=== PATIENT | female | born 1965 | race Caucasian/White ===

== ENCOUNTER 2020-06-05 05:30 | Observation (INO) | payer BC ==
[2020-06-01 13:14] LABS: BASOPHILS % 0.2 % (0.0-1.0); EOSINOPHILS # (AUTO) 0.1 (0.0-0.4); EOSINOPHILS % 0.7 % (0.0-6.0); HEMATOCRIT 43.4 % (34.2-44.1); HEMOGLOBIN 13.7 g/dL (12.0-16.0); LYMPHOCYTES # (AUTO) 2.6 (1.0-3.2); LYMPHOCYTES % 32.2 % (18.0-39.1); MEAN CORPUSCULAR HEMOGLOBIN 26.1 pg (28-32); MEAN CORPUSCULAR HGB CONC 31.6 g/dL (31-35); MEAN CORPUSCULAR VOLUME 82.7 fL (81-99); MONOCYTES # (AUTO) 0.7 (0.2-0.8); MONOCYTES % 9.1 % (4.4-11.3); NEUTROPHILS # (AUTO) 4.6 (2.1-6.9); NEUTROPHILS % 57.4 % (38.7-80.0); PLATELET COUNT 277 x10e3/uL (140-360); RED BLOOD COUNT 5.25 x10e6/uL (3.6-5.1); RED CELL DISTRIBUTION WIDTH 14.5 % (11.7-14.4)
[2020-06-01 13:32] LABS: ALANINE AMINOTRANSFERASE 32 IU/L (0-55); ALBUMIN 3.9 g/dL (3.5-5.0); ALBUMIN/GLOBULIN RATIO 1.1 (0.8-2.0); ALKALINE PHOSPHATASE 115 IU/L (40-150); ANION GAP 13.4 mmol/L (8-16); BLOOD UREA NITROGEN 13 mg/dL (7-26); BUN/CREATININE RATIO 16 (6-25); CALCIUM 9.6 mg/dL (8.4-10.2); CARBON DIOXIDE 28 mmol/L (22-29); CHLORIDE 105 mmol/L (98-107); CREATININE, SERUM 0.81 mg/dL (0.57-1.11); EST GLOMERULAR FILTRATION RATE > 60 ML/MIN (60-); GLUCOSE 95 mg/dL (74-118); POTASSIUM 3.4 mmol/L (3.5-5.1); SODIUM 143 mmol/L (136-145)
[~2020-06-05] VITALS: Ht 157.5 cm; Wt 95.3 kg
[~2020-06-05 05:30] MED LIST: ATORVASTATIN CA20 MG PO; LOSARTAN POTAS100 MG PO; XIGDUO XR 5 MG1 EAC1 PO; ZETIA10 MG PO
[2020-06-05] MEDS ORDERED: CEFAZOLIN SOD 1 GM/NS 50ML 100 ML IV ONE (06:09)
[2020-06-05] MEDS ORDERED: ESTROGENS CONJUGATED VAGINAL CR 45 GM TUBE PV ONE (07:22)
[2020-06-05] MEDS ORDERED: BUPIVACAINE 0.25% 30ML SDV ONE (07:22)
[2020-06-05] MEDS ORDERED: LIDOCAINE 1% W/EPINEPHRINE 20 ML VIAL ONE ×2 (07:22→07:25)
[2020-06-05] MEDS ORDERED: FENTANYL CITRATE/PF 100MCG/2 ML INJ ONE ×2 (10:17→19:46)
--- OUTSIDE RECORDS SUMMARY | 2020-06-05 10:46 | XMS REPORT | Continuity of Care Document ---
Author Author [facility] t Organization [facility] Address [address] [place] [address] Phone Unavailable Care Team Providers Care Almond Huller Name Role Phone BerlinMaureen alatorrerenetta Sun Unavailable Problems This patient has no known problems. Allergies, Adverse Reactions, Alerts This patient has no known allergies or adverse reactions. Medications This patient has no known medications. Procedures This patient has no known procedures. Results Test Description Test Time Test Comments Results Result Comments Source NM THYROID IMAGING AND UPTAKE MULT DETERMINATIONS 2020-05-10 14: 54:34 [facility] : 1965 Sex: FCLINICAL INDICATION: dx: e05.90, hyperthyroidism, recent weight loss, lump in neck, exopthalamusMODALITY: Mimetas dual head gamma cameraTECHNIQUE: 200 microcuries I-123 are administered orally. 4-hour and 24-hour uptake determinations were performed. Planar imaging is performed at 4 hours.FINDINGS:COMPARISON: None4 hour uptake is 5.6% (normal 5-15%).24 hour uptake is 11.8% (normal 10-25%).Planar imaging demonstrates heterogeneous uptake is demonstrated with a large cold defect right mid and inferior thyroid, potential cold defect left superior thyroid.IMPRESSION:1. Low normal radioact harriet iodine uptake.2. Multinodular thyroid appearance; ultrasound of 04/23/2018 demonstrates 2.9 x 1.7 cm right inferior and multiple confluent benign-appearing thyroid nodules. The dominant left inferior thyroid nodule was previously biopsied and represents an adenomatous nodule. Consider repeat ultrasound examination. SCR MAMM BILATERAL SUSU CAD DIGITAL 2019-09-21 16:36:51 - SCR MAMM BILATERAL SUSU CAD DIGITALBILATERAL DIGITAL SCREENING MAMMOGRAM 3D/2D WITH CAD: 09/21/2019CLINICAL: Asymptomatic. Digital breast tomosynthesis was performed in addition to routine CC and MLO views. Current mammographic images were evaluated by either a [employer] M-Vu or a [employer] ImageBeakercker CAD (computer aided detection system). Comparison is made to exams dated 07/08/2018 mammogram, mammogram, and 05/20/2016 mammogram - [facility]-. There are scattered fibroglandular tissues in both breasts. There are benign calcifications in the right breast. There also are benign intramammary nodes in the right breast. No suspicious mass, architectural distortion, malignant type calcification, or lymph node abnormality detected. Breast architecture is stable compared to prior exams.IMPRESSION: BENIGNThere is no mammographic evidence of malignancy. Resume annual screening mammography in one year. Cornelius Lira M.D. rb/penrad:09/21/2019 16:36:51 Associate Professor Of Communication: María Elena GRAF, [facility]-letter sent: BIRADS 1-2 Normal Mammogram BI-RADS: 2 Benign SCR MAMM BILATERAL SUSU CAD DIGITAL 2018-07-14 09:57:51 - SCR MAMM BILATERAL SUSU CAD DIGITALBILATERAL DIGITAL SCREENING MAMMOGRAM 3D/2D WITH CAD: 07/08/2018CLINICAL: Asymptomatic. Digital breast tomosynthesis was performed in addition to routine CC and MLO views. Current mammographic images were evaluated by either a [employer] M-Vu or a [employer] ImageChecker CAD (computer aided detection system). Comparison is made to exams dated 06/19/2017 mammogram, 05/20/2016 mammogram, and 04/23/2015 mammogram - [facility]-. There are scattered fibroglandular tissues in both breasts. No suspicious mass, architectural distortion, malignant type calcification, or lymph node abnormality detected. Breast architecture is stable compared to prior exams.IMPRESSION: NEGATIVEThere is no mammographic evidence of malignancy. Resume annual screening mammography in one year. Ceci miller/lynsey:07/14/2018 09:57:51 Attending Technologist: Kindra GRAF, [facility]-FWImaging Technologist: Lynne GRAF, [facility]-FWletter sent: BIRADS 1-2 Normal Mammogram BI-RADS: 1 Negative
[2020-06-05] MEDS ORDERED: HYDROMORPHONE 1MG/1ML INJ ONE (11:13)
--- NOTE | 2020-06-05 12:10 | NUR ---
Received patient from PACU. Patient oriented to room and call light. Vital signs stable, no s/s of distress. Jackson in place with clear yellow urine. Vaginal packing in place, no bleeding noted. SCD's applied bilaterally. Left AC 20 gauge IV intact/patent. Call light in reach will continue to monitor patient.
[2020-06-05] MEDS ORDERED: OXYCODONE HCL IR 5 MG TAB PO PRN ×2 (13:00)
[2020-06-05] MEDS ORDERED: ACETAMINOPHEN 1000 MG/100 ML IV PRN (13:00)
[2020-06-05 13:03] VITALS: BP 129/80
[2020-06-05 13:06] VITALS: BP 129/80
[2020-06-05 13:07] VITALS: BP 129/80
[2020-06-05] MEDS ORDERED: DEXAMETHASONE SOD PHOS INJ 4 MG/ML VIAL ONE (13:09)
[2020-06-05] MEDS ORDERED: NEOSTIGMINE 1 MG/ML 10ML VIAL ONE (13:09)
[2020-06-05] MEDS ORDERED: LIDOCAINE HCL 2% LOCAL INJ 5 ML SDV VIAL INJ ONE (13:09)
[2020-06-05] MEDS ORDERED: ATROPINE SULFATE 1 MG/ML VIAL ONE (13:09)
[2020-06-05] MEDS ORDERED: SEVOFLURANE INHAL SOLN 250 ML PEN BTL ONE (13:09)
[2020-06-05] MEDS ORDERED: ROCURONIUM BROMIDE 10 MG/ML 5ML VIAL IV ONE (13:09)
[2020-06-05] MEDS ORDERED: ONDANSETRON HCL INJ 2MG/ML 2ML 2 MG/ML VIAL ONE (13:09)
[2020-06-05] MEDS ORDERED: PROPOFOL IV EMULSION 10 MG/ML 20 ML VIAL ONE (13:09)
--- NOTE | 2020-06-05 13:35 | NUR ---
Spoke to Dr. Ramos regarding patient status. New order to give 1L NS bolus. DC Jackson and remove vaginal packing.
--- NOTE | 2020-06-05 13:59 | NUR ---
Patient vaginal packing removed by Dr. Ramos. Patient benitez removed with 10cc balloon in tact with bloody tip from having the packing removed right before. Patient had some breakthrough pain and the doctor prescribed Tylenol and Motrin PRN for extra pain coverage. Dr. Ramos said if patient voids and walks around, with her pain under control she may discharge later with the two prescriptions and paper instructions in chart.
[2020-06-05] MEDS ORDERED: SODIUM CHLORIDE 0.9% 1000ML 1,000 ML IV ONE (14:00)
[2020-06-05] MEDS ORDERED: ACETAMINOPHEN 325 MG TAB PO PRN (14:00)
[2020-06-05] MEDS ORDERED: IBUPROFEN 600 MG TAB PO PRN (14:00)
[2020-06-05 16:18] VITALS: BP 111/56
--- NOTE | 2020-06-05 16:41 | NUR ---
Patient ambulated in hallway, steady gait present. No s/s of distress.
--- NOTE | 2020-06-05 18:01 | NUR ---
Patient has voided since Jackson removal.
[2020-06-05] MEDS ORDERED: NORCO 5-325 TA1 EACH PO (18:05)
[2020-06-05] MEDS ORDERED: MOTRIN200 MG PO (18:05)
--- NOTE | 2020-06-05 18:20 | NUR ---
Spoke to Dr. Ramos, patient ok to discharge home.
--- NOTE | 2020-06-05 18:48 | NUR ---
WALKING ROUNDS PERFORMED, RECEIVED PT LAYING SEMI FOWLERS IN BED, AAOX3, RR EVEN AND NON-LABORED, ON ROOM AIR. NO S/SX OF DISTRESS NOTED. FAMILY AT BEDSIDE. LEFT PT LAYING SEMI FOWLERS IN BED, BED IN LOW LOCKED POSITION, SIDE RAILS UPX2, CALL LIGHT AND PHONE WITHIN REACH.
[2020-06-05 19:30] VITALS: BP 115/75
--- NOTE | 2020-06-05 19:30 | NUR ---
TRANSLATION LINE UTILIZED TO PERFORM DISCHARGE TEACHING. SPOKE WITH DAMARI Perla. PT VERBALIZED UNDERSTANDING OF DISCHARGE INSTRUCTIONS BY TEACH BACK METHOD. PT DISCHARGE QUESTIONS ANSWERED. DISCHARGE PAPERWORK AND RX'S PROVIDED TO PATIENT AND INSERTED INTO DISCHARGE FOLDER.
--- NOTE | 2020-06-05 19:45 | NUR ---
IV TO (L) AC DISCONTINUED. IV CATHETER TIP INTACT. PRESSURE AND DRESSING APPLIED.
[2020-06-05] MEDS ORDERED: MIDAZOLAM HCL 2 MG/2 ML VIAL ONE (19:46)
--- NOTE | 2020-06-05 19:58 | NUR ---
PT TRANSPORTED BY WHEELCHAIR TO PRIVATE AUTO. PT BELONGINGS WITH DISCHARGE PAPERWORK WITH PATIENT. NO S/SX OF DISTRESS NOTED.
--- NOTE | 2020-06-05 21:45 | Operative Report ---
DATE OF PROCEDURE: 06/05/2020 SURGEON: Marina Ramos MD EXTRACTOR LOADER AND UNLOADER: MD García (Sanchez-Rotunno) PROCEDURE: Transvaginal hysterectomy, bilateral salpingo-oophorectomy, anterior repair, bilateral sacrospinous colpopexy, posterior repair, and cystoscopy. INDICATIONS FOR THE PROCEDURE: The patient is a 54-year-old postmenopausal patient with grade 3 uterine prolapse, cystocele and rectocele, who presented for definitive surgical management. She was counseled on the risks, benefits, and alternatives of the procedure. The patient agrees to proceed with the proposed procedure. Given that she was over 10 years of postmenopausal, the decision was made to proceed with bilateral salpingo-oophorectomy. ESTIMATED BLOOD LOSS: 200 mL. URINE OUTPUT: Unmeasured. SPECIMENS: Uterus, bilateral tubes and ovaries. COMPLICATIONS: None. DESCRIPTION OF PROCEDURE: The patient was taken to the operating room, where she was placed under general anesthesia. SCDs were placed and the patient was given 2 g of Ancef. She was positioned in dorsal lithotomy position using candy cane stirrups. The patient was prepped using chlorhexidine and draped in the usual sterile fashion. A time-out was performed confirming correct patient, site, and procedure. Bladder was emptied using straight cath. Cervix was visualized and noted to be prolapsed. It was grasped in the anterior and posterior lip using a Marcel clamp. 1% lidocaine was injected at the cervicovaginal junction and circumferential incision was made through the full-thickness of the vaginal epithelium at the cervicovaginal junction. The vagina was dissected out sharply and bluntly with Hodgson scissors in the posterior aspect. Peritoneum was identified and opened with Hodgson scissors. A weighted speculum was then placed in the cul-de-sac. The attention was turned to the anterior aspect of the cervix. Was gently dissected bluntly off the cervix. The left uterosacral ligament was clamped with Zeppelin perpendicular to the uterus. This pedicle was cut and suture ligated, this was repaired on the right uterosacral ligament. The left cardinal ligaments were then ligated with LigaSure, this was repaired on the right side. Using the LigaSure, both uterine vessels were ligated with excellent hemostasis. At this time, the fundus was visualized. The peritoneum was identified and excised using Bovie. The right tube and round ligament and utero-ovarian ligaments were grasped with Zeppelin, excised and suture ligated x2 with excellent hemostasis. This was repeated on the left side. The left tube and ovary were grasped with Tala and these were excised using LigaSure with excellent hemostasis. The left tube and ovary appeared normal. The right tube was grasped and ligated with LigaSure. The right ovary was grasped. The IP was clamped with the Zeppelin. The ovary was excised and the IP was suture ligated. There was excellent hemostasis noted. There was noted to be some oozing along the left pedicle on the superificial aspect and interrupted suture with 0 Vicryl used to obtain hemostasis on that side. The pedicles were then re-inspected and hemostasis confirmed. There was noted to be bleeding from the vaginal cuff and Avitene was placed for hemostasis. At this time, attention was turned to the anterior vaginal wall. A lidocaine was infiltrated on the anterior vaginal mucosa midline and an incision was made in the vaginal mucosa, the vaginal vault and the Metzenbaum scissors were then dissected mucosa off the cystocele. The bladder was carefully dissected away along the lateral edges using sharp and blunt dissection. Fingers were then inserted in the vaginal mucosa, dissected off the rectovaginal phase on the patient's left side. Ischial spine and sacrospinous ligaments were palpated. The dissected off the ligament. Capio SLIM device was loaded with 0 Vicryl and passed through the sacrospinous ligament approximately 1.5 cm medial to the ischial spine. This was repaired in similar fashion to the patient's right sacrospinous ligament. The end of the sutures was then both placed through posterior cuff using the Capio. The anterior repair was then completed. The series of 2-0 Vicryl sutures were then placed along the lateral brought together. The excess vaginal mucosa was then trimmed and the vagina was then closed with a running 0 Vicryl suture. Cystoscope was then performed using a 70-degree cystoscope. Bladder and urethra were inspected. There was no evidence of injury or perforation. Bilateral ureters with jets visualized bilaterally. Cystoscope was removed and the bladder was emptied. Jackson was placed. The vaginal cuff was inspected. There was noted to be hemostasis. Vaginal cuff was closed using 0 Vicryl using [id number] sutures incorporating the peritoneum. Hemostasis was noted. Attention was then turned to the posterior repair. Lidocaine solution was again infiltrated into the posterior vaginal mucosa midline and the perineal body. Transverse incision was cut in the peritoneum. Posterior vaginal wall was opened vertically and midline up to the apex of rectocele. Cut edges were held and slight opened with Allis clamps and the vaginal mucosa was then dissected laterally with sharp and blunt dissection exposing the perirectal fascia. The perirectal fascia was reapproximated with two interrupted 0 Vicryl sutures to the top of the rectocele back. The interrupted 0 Vicryl was then used to reapproximate the levator ani muscle. The excess vagina muscles were trimmed. The posterior vaginal wall was closed with 2-0 Vicryl suture and the superficial perineal muscles were then closed with 2-0 Vicryl suture and was closed with 2-0 Vicryl suture in a running fashion. Vaginal packing with Premarin was placed. All instruments, lap, and sponge were counted and were correct. The Jackson catheter was noted to returning clear urine. The patient tolerated the procedure well and she was taken to the PACU in stable condition. Marina Ramos MD JPO/MODL /[id number]
== END 2020-06-05 19:58 | disposition home or self-care (01) ==
LOC: OR 05:30 → PACU V 10:44 → MED/SURG 12:10
PROVIDERS: ADMIT Obstetrics & Gynecology; ATTEND Obstetrics & Gynecology
DX: N81.4 Uterovaginal prolapse, unspecified (principal); I10 Essential (primary) hypertension; E11.9 Type 2 diabetes mellitus without complications; E78.5 Hyperlipidemia, unspecified; Z01.810 Encounter for preprocedural cardiovascular examination; Z01.812 Encounter for preprocedural laboratory examination; Z20.828 Contact with and (suspected) exposure to other viral communicable diseases
CPT/HCPCS: 36415 ×2; 57260; 57282; 58262; 80053; 82948; 84702; 85025; 88305; 88307; 93005; C1758; G0378; J0461; J0690; J1100; J1170; J2001; J2250; J2405; J2704; J2710; J3010; J7030; U0002

== ENCOUNTER 2020-06-06 16:39 | Emergency (ER) | payer BC ==
[~2020-06-06] VITALS: Ht 157.5 cm; Wt 95.3 kg
[~2020-06-06 16:39] MED LIST changes: +MOTRIN200 MG PO; +NORCO 5-325 TA1 EACH PO
--- NOTE | 2020-06-06 17:03 | Emergency Department Note ---
History of Present Illnes History of Present Illness Chief Complaint: Extremity Trauma/Pain History of Present Illness This is a 54 year old female Chief Complaint Comment Patient in from home with complaints of left leg pain that started yesterday after she was here for surgery. Patient reports she had a hysterectomy yesterday and noticed the pain right after anesthesia wore off. Patient states that her toes and feet feel numb as well. Good pedal pulses noted. Patient reports pain 10/10 when standing. Historian: Patient Arrival Mode: Car Past Medical/Family History Physician Review I have reviewed the patient's past medical and family history. Any updates have been documented here. Past Medical History Recent Fever: No Clinical Suspicion of Infectio: No New/Unexplained Change in Ment: No Past Medical History: Hypertension, Diabetes, Hyperlipedemia Other Medical History: hyperthyroid vericose veins Past Surgical History: Hysterectomy Other Surgery: thyroid biopsy Social History Smoking Cessation: Never Smoker Counseling Performed: No Alcohol Use: None Any Illegal Drug Use: No Physically hurt or threatened: No Other Any Pre-Existing Lines (PICC,: No Review of Systems Review of Systems Constitutional: Reports no symptoms EENTM: Reports no symptoms Cardiovascular: Reports no symptoms Respiratory: Reports no symptoms Gastrointestinal: Reports no symptoms Genitourinary: Reports no symptoms Musculoskeletal: Reports as per HPI, Reports back pain, Reports other (L leg pain) Integumentary: Reports no symptoms Neurological: Reports no symptoms Psychological: Reports no symptoms Endocrine: Reports no symptoms Hematological/Lymphatic: Reports no symptoms Physical Exam Related Data Allergies: Coded Allergies: No Known Allergies (Unverified , 06/05/20) Triage Vital Signs Vital Signs Date Time Temp Pulse Resp B/P (MAP) Pulse Ox O2 Delivery O2 Flow Rate FiO2 06/06/20 16:45 98.3 93 16 125/69 98 Room Air Vital signs reviewed: Yes Physical Exam CONSTITUTIONAL Constitutional: Present well-developed, Present well-nourished HENT HENT: Present normocephalic, Present atraumatic, Present oropharynx clear/moist, Present nose normal HENT L/R: Present left ext ear normal, Present right ext ear normal EYES Eyes: Reports PERRL, Reports conjunctivae normal NECK Neck: Present ROM normal PULMONARY Pulmonary: Present effort normal, Present breath sounds normal CARDIOVASCULAR Cardiovascular: Present regular rhythm, Present heart sounds normal, Present capillary refill normal, Present normal rate GASTROINTESTINAL Abdominal: Present soft, Present nontender, Present bowel sounds normal GENITOURINARY Genitourinary: Present exam deferred SKIN Skin: Present warm, Present dry MUSCULOSKELETAL Musculoskeletal: Present ROM normal; Absent edema NEUROLOGICAL Neurological: Present alert, Present oriented x 3, Present no gross motor or sensory deficits PSYCHOLOGICAL Psychological: Present mood/affect normal, Present judgement normal Assessment & Plan Medical Decision Making MDM 66-year-old female presents for left leg pain starting from the left lower back radiating down the posterior aspect of her leg on the way to her foot. She recently had surgery yesterday, transvaginal hysterectomy. Examination shows no leg swelling Homans sign negative, no signs of DVT. Exam and history is consistent with sciatic nerve pain. Dr. Terrell to process this time discussed management such as keeping pressure off of sacral nerve roots and following up with her primary doctor. Return precautions were given for any signs concerning of DVT. Patient's family state. Plan she is appropriate for discharge. Assessment & Plan Final Impression: (1) Sciatica (2) Leg pain Depart Disposition: HOME, SELF-CARE Last Vital Signs Date Time Temp Pulse Resp B/P (MAP) Pulse Ox O2 Delivery O2 Flow Rate FiO2 06/06/20 16:45 98.3 93 16 125/69 98 Room Air Home Meds Reported Medications Ibuprofen (MOTRIN) 200 Mg Tab, 600 MG PO Q6H PRN for Mild Pain (1-3) or Fever>100.8, TAB 06/05/20 Hydrocodone Bit/Acetaminophen (NORCO 5-325 TABLET) 1 Each Tablet, 1 TAB PO Q4H PRN for MODERATE PAIN (4-6), TAB 06/05/20 Ezetimibe (ZETIA) 10 Mg Tablet, 20 MG PO DAILY, #30 TAB 06/01/20 Dapagliflozin/Metformin HCl (Xigduo Xr 5 mg-1,000 mg Tablet) 1 Each Tab.bp.24h, 1 TAB PO DAILY 06/01/20 Atorvastatin Calcium (ATORVASTATIN CALCIUM) 20 Mg Tablet, 40 MG PO HS, #30 TAB 06/01/20 Losartan Potassium (LOSARTAN POTASSIUM) 100 Mg Tablet, 100 MG PO DAILY, TAB 06/01/20 ALEX WHEELER MD Jun 06, 2020 17:03
--- OUTSIDE RECORDS SUMMARY | 2020-06-06 17:37 | XMS REPORT | Continuity of Care Document ---
Author Author [facility] t Organization [facility] Address [address] [place] [address] Phone Unavailable Care Team Providers Care Cable Tool Driller Name Role Phone BerlinMaureen alatorrerenetta Sun Unavailable Problems This patient has no known problems. Allergies, Adverse Reactions, Alerts This patient has no known allergies or adverse reactions. Medications This patient has no known medications. Procedures This patient has no known procedures. Results Test Description Test Time Test Comments Results Result Comments Source NM THYROID IMAGING AND UPTAKE MULT DETERMINATIONS 2020-05-10 14: 54:34 [facility] : 1965 Sex: FCLINICAL INDICATION: dx: e05.90, hyperthyroidism, recent weight loss, lump in neck, exopthalamusMODALITY: [employer] dual head gamma cameraTECHNIQUE: 200 microcuries I-123 [...] mammographic images were evaluated by either a [employer] M-Vu or a [employer] ImageHomeowners of America Holdingcker CAD (computer aided detection system). Comparison is made to exams dated 07/08/2018 mammogram, mammogram, and 05/20/2016 mammogram - [facility]-. There are scattered fibroglandular tissues [...] one year. Cornelius Lira M.D. rb/penrad:09/21/2019 16:36:51 Bike Shop Manager: María Elena GRAF, [facility]-letter sent: BIRADS 1-2 Normal Mammogram BI-RADS: 2 Benign SCR MAMM BILATERAL SUSU CAD DIGITAL 2018-07-14 09:57:51 - SCR MAMM BILATERAL SUSU CAD DIGITALBILATERAL DIGITAL SCREENING MAMMOGRAM 3D/2D WITH CAD: 07/08/2018CLINICAL: Asymptomatic. Digital breast tomosynthesis was performed in addition to routine CC and MLO views. Current mammographic images were evaluated by either a [employer] M-Vu or a [employer] ImageChecker CAD (computer aided detection system). Comparison is made to exams dated 06/19/2017 mammogram, 05/20/2016 mammogram, and 04/23/2015 mammogram - [facility]-. There are scattered fibroglandular tissues [...]
== END 2020-06-06 17:53 | disposition home or self-care (01) ==
LOC: ER 16:47
DX: M54.42 Lumbago with sciatica, left side (principal); M79.605 Pain in left leg; I10 Essential (primary) hypertension; E11.9 Type 2 diabetes mellitus without complications; E78.5 Hyperlipidemia, unspecified
CPT/HCPCS: 99283